=== PATIENT | female | born 1935 | race Caucasian/White ===

== ENCOUNTER 2018-09-16 09:09 | Emergency (ER) | payer MEDICARE, OTHER ==
[~2018-09-16] VITALS: Ht 157.5 cm; Wt 57.7 kg
[2018-09-16] MEDS ORDERED: TRAM50TA2 PO (10:16)
[2018-09-16 10:24] VITALS: BP 130/72
== END 2018-09-16 10:25 | disposition home or self-care (01) ==
LOC: ER 09:10
DX: S70.01XA Contusion of right hip, initial encounter (principal); Z79.899 Other long term (current) drug therapy; W00.0XXA Fall on same level due to ice and snow, initial encounter; Y93.89 Activity, other specified; Y92.89 Other specified places as the place of occurrence of the external cause; Y99.8 Other external cause status
CPT/HCPCS: 71045; 72220; 73502; 99284

== ENCOUNTER 2019-01-05 09:44 | Observation (INO) | payer MEDICARE, OTHER ==
[~2019-01-05] VITALS: Ht 157.5 cm; Wt 59.0 kg
[2019-01-05 11:09] LABS: BASOPHILS % (AUTO) 0.9 % (0-1); EOSINOPHILS # (AUTO) 0.1 X10'3 (0-0.9); EOSINOPHILS % (AUTO) 3.1 % (0-6); HEMATOCRIT 41.8 % (35.0-45.0); HEMOGLOBIN 13.6 g/dl (12.0-16.0); LYMPHOCYTES # (AUTO) 0.7 X10'3 (1.1-4.8); LYMPHOCYTES % (AUTO) 16.6 % (21-51); MEAN CORPUSCULAR HEMOGLOBIN 29.2 PG (27.0-31.0); MEAN CORPUSCULAR HGB CONC 32.4 g/dL (33.0-36.5); MEAN PLATELET VOLUME 7.1 FL (7.4-10.4); MONOCYTES # (AUTO) 0.4 X10'3 (0-0.9); MONOCYTES % (AUTO) 9.6 % (2-12); NEUTROPHILS # (AUTO) 3.1 X10'3 (1.8-7.7); NEUTROPHILS % (AUTO) 69.8 % (42-75); PLATELET COUNT 323 X10'3 (140-440); RED BLOOD COUNT 4.65 X10'6 (4.20-5.60); WHITE BLOOD COUNT 4.5 X10'3 (4.5-11.0)
[2019-01-05 11:21] LABS: CLARITY,URINE SLIGHTLY CLOUDY (Clear); COLOR,URINE YELLOW (Yellow); GLUCOSE, URINE NEGATIVE (Neg); KETONES,URINE NEGATIVE (Neg); LEUKOCYTE ESTERASE ,URINE NEGATIVE (Neg); NITRITES, URINE NEGATIVE (Neg); OCCULT BLOOD,URINE NEGATIVE (Neg); PH,URINE 5.5 (4.8-8.0); PROTEIN,URINE NEGATIVE (Neg); UROBILINOGEN,URINE 0.2 E.U/dL (0.2-1.0)
[2019-01-05 11:21] LABS: PARTIAL THROMBOPLASTIN TIME 26 SECONDS (22-32)
[2019-01-05 11:27] LABS: UA COLLECTION TYPE CLN CATCH MIDSTREAM
[2019-01-05 11:30] LABS: BACTERIA,URINE 4+ /HPF (Neg); MUCUS STRANDS FEW /LPF (Neg); RBC,URINE NONE SEEN /HPF (0-2); SQUAMOUS EPITHELIAL CELL,UR MODERATE /LPF (FEW)
[2019-01-05 12:23] LABS: ALANINE AMINOTRANSFERASE 22 U/L (12-78); ALBUMIN 3.6 G/DL (3.4-5.0); ALBUMIN/GLOBULIN RATIO 1.1 (1.1-1.5); ALKALINE PHOSPHATASE 96 IU/L (46-116); ANION GAP 8 (8-16); ASPARTATE AMINO TRANSFERASE 19 U/L (10-37); BILIRUBIN,TOTAL 0.3 MG/DL (0.1-1.0); BLOOD UREA NITROGEN 12 MG/DL (7-18); BUN/CREATININE RATIO 13.2 (6.6-38.0); CALCIUM 9.3 MG/DL (8.5-10.1); CHLORIDE 106 MMOL/L (99-107); CREATININE 0.91 MG/DL (0.40-0.90); GLUCOSE 110 MG/DL (70-104); POTASSIUM 4.1 MMOL/L (3.5-5.1); SODIUM 142 MMOL/L (135-145); TOTAL CARBON DIOXIDE 28.1 MMOL/L (24-32); eGFR 59 ML/MIN
--- NOTE | 2019-01-05 13:30 | NUR ---
TO CT SCAN VIA WHEELCHAIR IN STABLE CONDITION, WITH LINE CONSTRUCTION SUPERVISOR
--- NOTE | 2019-01-05 13:44 | NUR ---
BACK FROM CT SCAN
[2019-01-05] MEDS ORDERED: magnesium hydroxide 30ml (MOM) UD suspension PO PRN (15:30)
[2019-01-05] MEDS ORDERED: ondansetron/PF 4mg/2ml inj IV PRN (15:30)
[2019-01-05] MEDS ORDERED: acetaminophen 325mg tablet PO PRN ×2 (15:30)
[2019-01-05] MEDS ORDERED: mag hydrox/Alum hydrox/simeth 30ml oral suspension PO PRN (15:30)
[2019-01-05] MEDS ORDERED: levetiracetam 250mg tablet PO ONE (15:30)
[2019-01-05] MEDS: levetiracetam 250mg tablet PO SCH (15:42)
[2019-01-05] MEDS ORDERED: LEVO50TA8 PO (16:20)
--- NOTE | 2019-01-05 17:31 | NUR ---
relieving RN for break, pt is resting quietly on gurney, resp even and unlabored, pt is GCS 15, alert and oriented x3, skin p/w/d, waiting for bed assignment
--- NOTE | 2019-01-05 17:43 | NUR ---
DAUGHTER AT BEDSIDE, STATES I WAS JUST TALKING TO HER ON THE PHONE, AND HER SPEECH WAS IMPAIRED SAYING RANDOM WORDS LIKE RAIN, AND THEN WENT QUIET. DAUGHTER WAS IN THE PARKING LOT AT THIS TIME. PT ALERT AND ACTIVE NOW. NO SPEECH DEFICIT, NO SLURRED SPEECH.
[2019-01-05 17:50] VITALS: BP 139/65
--- NOTE | 2019-01-05 17:50 | NUR ---
Pt transferred from ER to 4021a via gurney to bed. Pt awake and alert. VSS. Pt denied any pain at this time. Pt oriented x4. Sz pads in place. Oriented pt to and call light use.
--- NOTE | 2019-01-05 18:30 | NUR ---
Patient in room [facility] 4021. I have received report from BABAR Harrison and had the opportunity to ask questions and assume patient care.
--- NOTE | 2019-01-05 18:32 | NUR ---
informed albino polanco. of above in report
[2019-01-05 20:00] VITALS: BP_SYST 120; BP_SYST 125; BP_SYST 138; BP_DIAS 62; BP_DIAS 64
[2019-01-05 22:00] VITALS: BP 115/50
--- NOTE | 2019-01-06 06:30 | NUR ---
Problems reprioritized. Patient report given, questions answered & plan of care reviewed with BABAR eason.
--- NOTE | 2019-01-06 07:06 | NUR ---
Received report from Ariella ECKERT
[2019-01-06 07:31] VITALS: BP 112/59
[2019-01-06 07:47] LABS: BASOPHILS % (AUTO) 0.7 % (0-1); EOSINOPHILS % (AUTO) 0.7 % (0-6); HEMATOCRIT 38.8 % (35.0-45.0); HEMOGLOBIN 13.1 g/dl (12.0-16.0); LYMPHOCYTES # (AUTO) 0.6 X10'3 (1.1-4.8); LYMPHOCYTES % (AUTO) 11.5 % (21-51); MEAN CORPUSCULAR HEMOGLOBIN 29.9 PG (27.0-31.0); MEAN CORPUSCULAR HGB CONC 33.8 g/dL (33.0-36.5); MEAN CORPUSCULAR VOLUME 88.4 FL (78-98); MEAN PLATELET VOLUME 7.8 FL (7.4-10.4); MONOCYTES # (AUTO) 0.3 X10'3 (0-0.9); MONOCYTES % (AUTO) 6.4 % (2-12); NEUTROPHILS # (AUTO) 4.1 X10'3 (1.8-7.7); NEUTROPHILS % (AUTO) 80.7 % (42-75); PLATELET COUNT 285 X10'3 (140-440); RED BLOOD COUNT 4.39 X10'6 (4.20-5.60); RED CELL DISTRIBUTION WIDTH 13.7 % (11.5-14.5); WHITE BLOOD COUNT 5.1 X10'3 (4.5-11.0)
[2019-01-06 07:56] LABS: ALBUMIN 3.1 G/DL (3.4-5.0); ANION GAP 7 (8-16); BLOOD UREA NITROGEN 12 MG/DL (7-18); BUN/CREATININE RATIO 16.7 (6.6-38.0); CALCIUM 9.1 MG/DL (8.5-10.1); CHLORIDE 106 MMOL/L (99-107); CREATININE 0.72 MG/DL (0.40-0.90); GLUCOSE 124 MG/DL (70-104); SODIUM 141 MMOL/L (135-145); TOTAL CARBON DIOXIDE 27.9 MMOL/L (24-32); eGFR 78 ML/MIN
[2019-01-06 08:00] VITALS: BP_SYST 110; BP_SYST 115; BP_SYST 123; BP_DIAS 53; BP_DIAS 56; BP_DIAS 62
[2019-01-06] MEDS: levetiracetam 250mg tablet PO SCH (08:04)
[2019-01-06 11:55] VITALS: BP 110/56
[2019-01-06] MEDS ORDERED: LEVE250T PO (13:00)
--- NOTE | 2019-01-06 15:09 | NUR ---
Patient was discharged iv and tele was removed from patient. patient was alert and oriented at time of discharge. dragan was called into [facility] on [address]. patient left with family member
== END 2019-01-06 14:00 | disposition home or self-care (01) ==
LOC: ER 09:45 → ED HOLD 15:29 → ORTHO 4S 17:50
PROVIDERS: ADMIT Hospitalist; ATTEND Family Medicine
DX: S06.0X1A Concussion with loss of consciousness of 30 minutes or less, initial encounter (principal); R56.9 Unspecified convulsions; W01.0XXA Fall on same level from slipping, tripping and stumbling without subsequent striking against object, initial encounter
CPT/HCPCS: 36415; 70450; 71045; 80048; 80053; 81001; 85025; 85610; 85730; 87070; 87077; 87088; 87186; 93005; 93306; 99284; G0378

== ENCOUNTER 2019-09-08 20:33 | Emergency (ER) | payer MEDICARE, OTHER ==
[~2019-09-08] VITALS: Ht 157.5 cm; Wt 62.3 kg
[~2019-09-08 20:33] MED LIST: LEVE250T PO; LEVO50TA8 PO
[2019-09-08] MEDS ORDERED: PRED20TA PO (21:17)
[2019-09-08] MEDS ORDERED: FAMO-128 PO (21:17)
[2019-09-08 21:28] VITALS: BP 165/81
== END 2019-09-08 21:30 | disposition home or self-care (01) ==
LOC: ER 20:34
DX: L23.9 Allergic contact dermatitis, unspecified cause (principal); Z88.8 Allergy status to other drugs, medicaments and biological substances; Z79.899 Other long term (current) drug therapy
CPT/HCPCS: 99284

== ENCOUNTER 2019-10-04 10:00 | Emergency (ER) | payer MEDICARE, OTHER ==
[~2019-10-04] VITALS: Ht 157.5 cm; Wt 62.0 kg
[~2019-10-04 10:00] MED LIST changes: +FAMO-128 PO; +PRED20TA PO
[2019-10-04 12:00] VITALS: BP 155/90
== END 2019-10-04 12:40 | disposition home or self-care (01) ==
LOC: ER 10:03
DX: S01.111A Laceration without foreign body of right eyelid and periocular area, initial encounter (principal); M25.561 Pain in right knee; Z79.899 Other long term (current) drug therapy; Z88.8 Allergy status to other drugs, medicaments and biological substances; Z88.5 Allergy status to narcotic agent; W18.49XA Other slipping, tripping and stumbling without falling, initial encounter; Y93.01 Activity, walking, marching and hiking; Y92.89 Other specified places as the place of occurrence of the external cause; Y99.9 Unspecified external cause status
CPT/HCPCS: 12011; 70450; 73560; 99284